=== PATIENT | male | born 1955 | race Caucasian/White ===

== ENCOUNTER 2023-01-10 13:50 | Emergency (ER) | payer MEDICARE, OTHER, SELFPAY ==
[2023-01-10 13:57] VITALS: BP 177/89; PULSE 61; RESP 16; TEMP 36.4; O2SAT 97; BMI 26.9
[2023-01-10] MEDS: PROPARACAINE 0.5% OPHTH SOL 1 DROPS EYE-BOTH (14:09)
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
[2023-01-10 14:30] VITALS: BP 134/80; PULSE 71; O2SAT 98
== END 2023-01-10 14:31 | disposition home or self-care (01) ==
PROVIDERS: Emergency Provider Emergency Medicine; PCP Family Medicine Sports Medicine
DX: H00.012 Hordeolum externum right lower eyelid (principal)
CPT/HCPCS: 99281; 99283

== ENCOUNTER 2024-07-01 00:01 | Emergency (ER) | payer MEDICARE, OTHER, SELFPAY ==
[2024-07-01] VITALS (8 sets, daily range): BP systolic 139–170; BP diastolic 74–84; PULSE 64–85; RESP 16–20; TEMP 37.2–37.4; O2SAT 93–97; BMI 28.2
[2024-07-01] MEDS: ONDANSETRON 4 MG ODT PO (00:16)
[2024-07-01 00:58] LABS: Influenza A - CEPHEID Flu A POSITIVE (NEGATIVE); Influenza B - CEPHEID Flu B NEGATIVE (NEGATIVE); Respiratory Syncytial Virus Negative (Negative)
[2024-07-01 01:26] LABS: COVID-19 CEPHEID 4-PLEX PCR Negative (Negative)
[2024-07-01 02:34] LABS: Add Manual Diff / Slide Review NO; Basophils Absolute Auto 0 /uL (0-100); Basophils Percent Auto 0.5 % (0-2); Eosinophils Absolute Auto 0 /uL (0-450); Hematocrit 42.8 % (41-53); Hemoglobin 14.6 g/dL (13.5-17.5); Lymphocytes Absolute Auto 600 /uL (1100-4500); Lymphocytes Percent Auto 7.9 % (25-40); Mean Corpuscular HGB Conc 34.1 % (30-36); Mean Corpuscular Hemoglobin 31.8 PG (26-34); Mean Corpuscular Volume 93.4 fL (80-100); Monocytes Absolute Auto 700 /uL (0-900); Neutrophils Absolute Auto 6000 /uL (1500-7000); Neutrophils Percent Auto 82.6 % (50-75); Platelet Count 196 X10^3/uL (150-400); Red Blood Cell Count 4.58 X10^6/uL (4.5-5.9); Red Cell Distribution Width 13.6 % (11.6-14.8); White Blood Cell Count 7.3 X10^3/uL (4.5-11.0)
[2024-07-01] MEDS: SODIUM CHLORIDE 0.9% 1,000 ML 1000 ML IV (02:38)
[2024-07-01 02:45] LABS: Alanine Aminotransferase 35 IU/L (<50); Albumin 4.7 g/dL (3.5-5.0); Albumin Globulin Ratio 1.6 (1.0-2.8); Alkaline Phosphatase 59 U/L (38-126); Aspartate Aminotransferase 36 IU/L (17-59); BUN Creatinine Ratio 12.8 (6-22); Bilirubin Total 0.6 mg/dL (0.2-1.3); Blood Urea Nitrogen 12 mg/dL (9-20); Calcium 9.3 mg/dL (8.4-10.2); Carbon Dioxide 23 mmol/L (22-32); Chloride 99 mmol/L (98-107); Estimated Glomerular Filt Rate > 60 mL/min (>60); Globulin 2.9 g/dL (1.7-4.1); Glucose 132 mg/dL (80-110); HEMOLYSIS < 15 (0-50); Lipase 54 U/L (23-300); Potassium 3.9 mmol/L (3.4-5.1); Sodium 133 mmol/L (137-145); Total Protein 7.6 g/dL (6.3-8.2)
--- NOTE | 2024-07-01 03:10 | ED_ITS ---
HPI - Nausea/Vomiting/Diarrhea General Chief complaint: Nausea/Vomiting/Diarrhea Stated complaint: deep hard cough, headache, n/v Time Seen by Provider: 07/01/24 02:31 Source: patient and family Mode of arrival: Ambulatory History of Present Illness HPI Narrative: 68-year-old male past medical history of hypertension comes into the ED from home for evaluation of cough, with associated nausea and vomiting, states that this started on Thursday, states his symptoms have made it so that he is had decreased p.o. intake, states he has been having intermittent fevers and chills, he denies any other symptoms such as headache visual disturbances chest pain or any other GI/ symptoms at this time. No recent sick contacts no recent travel not on any blood thinners Related Data Home Medications Medication Instructions Recorded Confirmed cholecalciferol (vitamin D3) 125 5,000 unit PO ##0 03/11/17 mcg (5,000 unit) capsule lisinopril 10 mg tablet 10 mg PO QDAY ##0 03/11/17 omega 9-kge-xtj-fish oil 1,000 mg ##0 03/11/17 (120 mg-180 mg) capsule (Fish Oil) Previous Rx's Medication Instructions Recorded amoxicillin 500 mg capsule 500 mg PO TID #30 caps 03/11/17 doxycycline hyclate 100 mg capsule 100 mg PO Q12H 5 days #10 caps 07/01/24 ondansetron 4 mg disintegrating 4 mg PO Q8H PRN nausea and 07/01/24 tablet vomiting 5 days #15 tabs Allergies Allergy/AdvReac Type Severity Reaction Status Date / Time No Known Drug Allergies Allergy Verified 01/10/23 13:57 Review of Systems Review of Systems Narrative: General: Denies fever, chills, weight loss HEENT: Denies headache, eye drainage, eye irritation, head trauma, sore throat, voice change Cardiovascular: Denies any chest pain, palpitations, tachycardia Respiratory: Positive cough, GI/: Positive abdominal pain, nausea, vomiting, denies diarrhea, bright red blood per rectum, melanotic stools, urinary frequency, urinary retention, dysuria, hematuria MSK: Denies any joint pain, muscle pains, swelling Skin: Denies any rashes, lesions, discoloration Neuro: Denies any headache, lightheadedness, dizziness, fainting, weakness Psych: Denies SI/HI Patient History Social History Smoking Status: Never smoker Smoking Status: Never smoker Exam Narrative Exam Narrative: General: Cooperative, comfortable, well-developed, not in acute distress HEENT: Normocephalic, atraumatic, PERRLA, normal sclera, eyelids normal, Neck: Active full range of motion, atraumatic Chest: Normal to inspection, negative crepitus, no overlying erythema ecchymosis Respiratory: Coughing on exam, Normal respiratory effort, not in acute respiratory distress, clear to auscultation bilaterally negative wheeze, tachypnea, rhonchi, rales Cardiology: Regular rate rhythm negative gallop, murmur, rubs GI/: Normal to inspection, soft, nonrigid, no tenderness to palpation, exam deferred MSK: Full range of active range of motion of all 4 extremities, atraumatic Skin: No rashes lesions noted Neuro: Alert awake oriented x3, moves all 4 extremities spontaneously, cranial nerves intact, able to answer all questions appropriately follows commands appropriately Psych: Cooperative, negative suicidal or homicidal ideations Initial Vital Signs Initial Vital Signs: Vital Signs Temperature 99.3 F 07/01/24 00:08 Pulse Rate 74 07/01/24 00:08 Respiratory Rate 16 07/01/24 00:08 Blood Pressure 139/80 07/01/24 00:08 Pulse Oximetry 95 07/01/24 00:08 Oxygen Delivery Method Room Air 07/01/24 00:08 Course Orders Ordered: ED Orders 07/01/24 00:15 Covid-19 + FLU A/B + RSV - PCR Stat 07/01/24 02:28 Complete Blood Count AUTO DIFF Stat Comprehensive Metabolic Panel Stat Lipase Stat 07/01/24 03:12 CXR [XR chest 1V] Stat Ondansetron HCl (Ondansetron 4 Mg/2 Ml Inj) 4 mg IV NOW PRN PRN Reason: Nausea And Vomiting Ondansetron HCl (Ondansetron 4 Mg Odt) 4 mg PO NOW PRN PRN Reason: Nausea And Vomiting Last Admin: 07/01/24 00:16 Dose: 4 mg Documented By: HNG Discontinued Medications Sodium Chloride (Normal Saline 0.9%) 1,000 mls @ 1,000 mls/hr IV BOLUS ONE Stop: 07/01/24 03:31 Last Infusion: 07/01/24 03:42 Dose: Infused Documented By: Admin: 07/01/24 02:38 Dose: 1,000 mls/hr Documented By: HAN Vital Signs Vital signs: Vital Signs - 8 hr 07/01/24 00:08 07/01/24 02:19 07/01/24 02:20 Temperature 99.3 F 98.9 F Pulse Rate 74 85 Respiratory Rate 16 Blood Pressure 139/80 Pulse Oximetry 95 96 97 Oxygen Delivery Method Room Air 07/01/24 02:20 07/01/24 02:30 07/01/24 02:37 Temperature Pulse Rate 79 75 Respiratory Rate 20 Blood Pressure 168/83 H Pulse Oximetry 96 95 Oxygen Delivery Method Room Air 07/01/24 02:37 07/01/24 03:00 07/01/24 03:00 Temperature Pulse Rate 64 Respiratory Rate 19 Blood Pressure 170/84 H 147/74 H Pulse Oximetry 93 Oxygen Delivery Method 07/01/24 03:30 07/01/24 03:30 07/01/24 04:00 Temperature Pulse Rate 80 Respiratory Rate 17 Blood Pressure 150/75 H 141/77 H Pulse Oximetry 95 Oxygen Delivery Method Room Air 07/01/24 04:00 Temperature Pulse Rate 71 Respiratory Rate 18 Blood Pressure Pulse Oximetry 93 Oxygen Delivery Method MDM - Nausea/Vomiting/Diarrhea Differential Diagnosis Differential diagnosis: Likely gastroenteritis, dehydration and other (COVID, flu, electrolyte abnormality) Lab Data 07/01/24 02:28 07/01/24 02:28 Labs: Lab Results 07/01/24 07/01/24 Range/Units 00:15 02:28 WBC 7.3 (4.5-11.0) X10^3/uL RBC 4.58 (4.5-5.9) X10^6/uL Hgb 14.6 (13.5-17.5) g/dL Hct 42.8 (41-53) % MCV 93.4 (80-100) fL MCH 31.8 (26-34) PG MCHC 34.1 (30-36) % RDW 13.6 (11.6-14.8) % Plt Count 196 (150-400) X10^3/uL Neut % (Auto) 82.6 H (50-75) % Lymph % (Auto) 7.9 L (25-40) % [place] % (Auto) 9.0 (3-14) % Eos % (Auto) 0.0 L (2-4) % Baso % (Auto) 0.5 (0-2) % Neut # (Auto) 6000 (1256-3619) /uL Lymph # (Auto) 600 L (7691-2540) /uL [place] # (Auto) 700 (0-900) /uL Eos # (Auto) 0 (0-450) /uL Baso # (Auto) 0 (0-100) /uL Sodium 133 L (137-145) mmol/L Potassium 3.9 (3.4-5.1) mmol/L Chloride 99 (98-107) mmol/L Carbon Dioxide 23 (22-32) mmol/L BUN 12 (9-20) mg/dL Creatinine 0.94 (0.66-1.25) mg/dL Estimated GFR > 60 (>60) mL/min BUN/Creatinine Ratio 12.8 (6-22) Glucose 132 H (80-110) mg/dL Calcium 9.3 (8.4-10.2) mg/dL Total Bilirubin 0.6 (0.2-1.3) mg/dL AST 36 (17-59) IU/L ALT 35 (<50) IU/L Alkaline Phosphatase 59 (38-126) U/L Total Protein 7.6 (6.3-8.2) g/dL Albumin 4.7 (3.5-5.0) g/dL Globulin 2.9 (1.7-4.1) g/dL Albumin/Globulin Ratio 1.6 (1.0-2.8) Lipase 54 (23-300) U/L SARS-CoV-2 (PCR) Negative (Negative) Influenza A (RT-PCR) Flu a positive H (NEGATIVE) Influenza B (RT-PCR) Flu b negative (NEGATIVE) RSV (PCR) Negative (Negative) Imaging Data Chest x-ray: Radiologist's Impression: Preliminary read showing small hazy right basilar atelectasis possible infiltrate MDM Narrative Medical decision making narrative: 68-year-old male with a past medical history hypertension presents to the emergency department from home for evaluation of flu-like symptoms. Has been having a cough intermittent fever chills nausea vomiting with slight abdominal cramping since Thursday. States he is had decreased p.o. intake secondary to these symptoms. Patient was noted to be flu A positive here. Lab work unremarkable no leukocytosis Chem panel unremarkable. Patient had fluid anti nausea medication and chest x-ray performed here did show possible atelectasis versus infiltrate given patient with cough we will treat with antibiotics, 1st dose of antibiotics here sent home prescription he was not having any need for supplemental oxygen, patient will be discharged home with outpatient follow up strict return precautions given verbalized understanding of this and agrees to being discharged home with outpatient follow up Discharge Plan Departure Patient Disposition: Home Clinical Impression: Influenza A, Pneumonia Instructions: DI for Pneumonia -- Adult Activity Restrictions/Additional Instructions: Please follow up with your primary care doctor Please read the discharge instructions sheet carefully and bring all papers to all doctor follow-up visits, as it may contain information that your doctor may want to see. Disease processes change and evolve, if your symptoms worsen or if you develop any new symptoms that are concerning to you please return for evaluation. Your evaluation today does not show any evidence of any life- threatening/serious illnesses requiring admission to the hospital or surgery. Please follow-up with your doctor for re-evaluation in approximately 1 day. Seek immediate medical attention for any worrisome symptoms. *If you do not have a primary care provider please contact the [facility] Resource line at [phone]. They will ask some questions about your medical history and help get you set up with a doctor in the community. Prescriptions: New doxycycline hyclate 100 mg capsule 100 mg PO Q12H 5 Days Qty: 10 0RF ondansetron 4 mg tablet,disintegrating 4 mg PO Q8H PRN (Reason: nausea and vomiting) 5 Days Qty: 15 0RF No Action lisinopril 10 MG tablet 10 mg PO QDAY Qty: 0 cholecalciferol (vitamin D3) 5,000 UNIT capsule 5,000 unit PO Qty: 0 omega 6-lib-glp-fish oil [Fish Oil] 1,000 MG capsule Qty: 0 amoxicillin 500 MG capsule 500 mg PO TID Qty: 30 0RF Referrals: Ephraim Gimenez MD [Primary Care Provider] - Stand Alone Forms: Patient Portal/API/Survey
--- NOTE | 2024-07-01 03:12 | DI.RAD.S_ITS ---
PROCEDURE: XR CHEST 1V INDICATIONS: cough TECHNIQUE: One view of the chest was acquired. COMPARISON: None. FINDINGS: Surgical changes and devices: None. Lungs and pleura: Mild bronchial wall thickening. No focal infiltrate. No pleural effusions or pneumothorax. Mediastinum: Mediastinal contours appear normal. Heart size is enlarged Bones and chest wall: No suspicious bony lesions. Overlying soft tissues appear unremarkable. IMPRESSION: Suggestion of reactive airway disease such as bronchitis. No definite focal infiltrate. No pleural effusion or pneumothorax. Dictated by: Raji Toscano M.D. on 07/01/2024 at 8:22 Approved by: Raji Toscano M.D. on 07/01/2024 at 8:22
--- NOTE | 2024-07-01 03:15 | PC.NURSE ---
Pt took 1000mg tylenol PO. Dr. Amando sahni.
[2024-07-01] MEDS: DOXYCYCLINE HYCLATE 100 MG TABLET PO (04:24)
== END 2024-07-01 04:35 | disposition home or self-care (01) ==
PROVIDERS: Emergency Provider Student in an Organized Health Care Education/Training Program; PCP Family Medicine Sports Medicine
DX: J09.X1 Influenza due to identified novel influenza A virus with pneumonia (principal); R11.2 Nausea with vomiting, unspecified; R10.9 Unspecified abdominal pain
CPT/HCPCS: 0241U; 36415; 71045; 80053; 83690; 85025; 96360; 99284